=== PATIENT | female | born 1990 | race Caucasian/White ===

== ENCOUNTER 2016-10-25 15:08 | Inpatient (IN) | payer OTHER ==
[~2016-10-25] VITALS: Ht 172.8 cm; Wt 92.7 kg
[2016-12-10] VITALS (68 sets, daily range): BP systolic 111–143; BP diastolic 54–117; PULSE 70–127; TEMP 97.5–98.4
[2016-12-10] MEDS ORDERED: PRENATAL MVI (06:23)
[2016-12-10 07:38] LABS: BASO % 0.4 % (0.0-2.0); EOS # 0.1 (0.0-0.7); EOS % 0.5 % (0-4.0); GRAN # 8.7 (1.4-6.5); GRAN % 77.4 % (42.2-75.2); LYMPH # 1.7 (1.2-3.4); LYMPH % 15.3 % (20.0-51.0); MEAN CELL VOLUME 92 fl (80.0-100.0); MEAN CORPUSCULAR HGB CONC 34 g/dl (33.0-37.0); MEAN PLATELET VOLUME 11.3 fl (7.4-10.4); MONO # 0.7 (0.1-0.6); MONO % 5.9 % (1.7-9.3); PLATELET COUNT 271 K/mm3 (130-400); RED BLOOD COUNT 3.75 M/mm3 (4.10-5.30); REDCELL DISTRIBUTION WIDTH-CV 13.3 % (11.5-14.5); WHITE BLOOD COUNT 11.2 K/mm3 (4.8-10.8)
[2016-12-10 07:41] LABS: HEMATOCRIT 34.4 % (37.0-47.0); HEMOGLOBIN 11.6 g/dl (12.5-16.0); MEAN CORPUSCULAR HEMOGLOBIN 31 pg (27.0-31.0)
[2016-12-10] MEDS ORDERED: VALTREX 50500 MG/TAB PO (07:55)
[2016-12-10] MEDS ORDERED: ZANTAC 7575 MG PO (07:55)
[2016-12-11] VITALS (11 sets, daily range): BP systolic 107–134; BP diastolic 70–92; PULSE 82–108; TEMP 97.7–98.1
[2016-12-12 06:53] VITALS: BP 124/71; PULSE 90; TEMP 97.7
[2016-12-12 16:30] VITALS: BP 119/70; PULSE 93; TEMP 97.5
[2016-12-12 20:28] VITALS: BP 112/68; PULSE 81; TEMP 98.6
[2016-12-13 07:00] VITALS: BP 121/75; PULSE 86; TEMP 97.7
[2016-12-13] MEDS ORDERED: IBU800 M1 PO (08:16)
[2016-12-13] MEDS ORDERED: PERCOCET 325 MG1 TA2 PO (08:16)
== END 2016-12-13 10:30 | disposition home or self-care (01) | DRG 766 ==
LOC: EDSTATUS 12-09 10:55 → LDRO 12-09 15:07 → OB 12-10 06:43 → LDR 12-10 06:43 → OB 12-10 23:55
PROVIDERS: Obstetrics & Gynecology
PROC: 10D00Z1 Extraction of Products of Conception, Low, Open Approach (ICD-10-PCS; principal; 2016-12-10)
PROC: 3E0P7GC Introduction of Other Therapeutic Substance into Female Reproductive, Via Natural or Artificial Opening (ICD-10-PCS; 2016-12-10)
DX: O48.0 Post-term pregnancy (principal); O62.1 Secondary uterine inertia; Z3A.40 40 weeks gestation of pregnancy; Z37.0 Single live birth
CPT/HCPCS: J0690; J1885; J2175; J2270; J2370; J2400; J2405; J2590; J2795; J7120

== ENCOUNTER → 2017-08-25 | Outpatient (CLI) | payer OTHER ==
[~2017-08-25] MED LIST: IBU800 M1 PO; PERCOCET 325 MG1 TA2 PO; PRENATAL MVI; VALTREX 50500 MG/TAB PO; ZANTAC 7575 MG PO
== END ==
LOC: COL.RAD 16:16
DX: Z30.431 Encounter for routine checking of intrauterine contraceptive device (principal)